=== PATIENT | female | born 1935 | race Caucasian/White ===

== ENCOUNTER 2017-09-27 17:31 | Inpatient (IN) | payer MEDICARE, MEDICAID ==
[~2017-09-27] VITALS: Ht 175.3 cm; Wt 76.0 kg
[~2017-09-27 17:31] MED LIST: ALPR0.5T99 PO; BENZ1CAP34 PO; CELE200 PO; CLOP75 PO; COZA100T PO; DILT120C9 PO; GLUCTAB PO; LASI20TA PO; LORTA5 PO; LOVA1TAB47 PO; OMEP20TA PO; TYLE3 PO; VIT E; VIT250TA PO
[2017-09-27 17:42] VITALS: BP 186/84; PULSE 79; RESP 17; TEMP 98.5; O2SAT 98
[2017-09-27] MEDS ORDERED: ONDANSETRON HCL 4 MG/2 ML VIAL IV PUSH ONE (18:00)
[2017-09-27] MEDS ORDERED: MORPHINE SULFATE 2 MG/ML SYRINGE IV PUSH ONE (18:00)
[2017-09-27 18:28] LABS: BASOPHIL % 0.4 % (0.0-2.0); EOSINOPHIL # 0.2 TH/MM3 (0-0.4); EOSINOPHIL % 2.2 % (0.0-4.0); HEMATOCRIT 32.9 % (35.0-46.0); LYMPH % 23.5 % (9.0-44.0); LYMPHOCYTE # 2.1 TH/MM3 (1.0-4.8); MEAN CELL VOLUME 91.1 FL (80.0-100.0); MEAN CORPUSCULAR HEMOGLOBIN 30.5 PG (27.0-34.0); MEAN CORPUSCULAR HGB CONC 33.4 % (32.0-36.0); MEAN PLATELET VOLUME 6.9 FL (7.0-11.0); MONO % 6.6 % (0.0-8.0); MONOCYTE # 0.6 TH/MM3 (0-0.9); NEUT % 67.3 % (16.0-70.0); PLATELET COUNT 402 TH/MM3 (150-450); RED BLOOD COUNT 3.62 MIL/MM3 (4.00-5.30); RED CELL DISTRIBUTION WIDTH 14.2 % (11.6-17.2); WHITE BLOOD COUNT 8.9 TH/MM3 (4.0-11.0)
[2017-09-27 18:34] LABS: INTERNATIONAL NORMALIZED RATIO 0.9 RATIO; PROTHROMBIN TIME - PATIENT 9.5 SEC (9.8-11.6)
--- NOTE | 2017-09-27 18:39 | RADRPT ---
EXAM DATE/TIME: 09/27/2017 18:20 [facility] COMPARISON: No previous studies available for comparison. INDICATIONS : Chest discomfort; fall today. MEDICAL HISTORY : Hypertension. Diabetes. SURGICAL HISTORY : None. ENCOUNTER: Initial ACUITY: 1 day PAIN SCORE: 0/10 LOCATION: Bilateral chest FINDINGS: A single view of the chest demonstrates mild right perihilar airspace disease. Calcified granuloma le ft lung. Tortuous aorta. No effusion. No pneumothorax. CONCLUSION: 1. Mild right-sided perihilar airspace disease. No effusion or pneumothorax. Kishor Shields MD on September 27, 2017 at 18:34 Board Certified Radiologist. This report was verified electronically.
[2017-09-27 18:41] LABS: BICARBONATE 25.2 MEQ/L (21.0-32.0); CALCIUM 8.8 MG/DL (8.5-10.1); CREATININE 0.91 MG/DL (0.50-1.00); MAGNESIUM 1.7 MG/DL (1.5-2.5)
--- NOTE | 2017-09-27 18:41 | RADRPT ---
EXAM DATE/TIME: 09/27/2017 18:18 [facility] COMPARISON: No previous studies available for comparison. INDICATIONS : Right hip pain; fall today. MEDICAL HISTORY : None. SURGICAL HISTORY : None. ENCOUNTER: Initial ACUITY: 1 day PAIN SCORE: 10/10 LOCATION: Right hip. FINDINGS: Examination of the right hip was performed with AP Pelvis. There is a slightly comminuted intertrocha nteric fracture proximal right femur. No dislocation. No other fractures are noted. CONCLUSION: 1. Slightly comminuted intertrochanteric fracture proximal right femur with mild displacement. Kishor Shields MD on September 27, 2017 at 18:38 Board Certified Radiologist. This report was verified electronically.
[2017-09-27] MEDS ORDERED: SODIUM CHLORID 0.9% 500 ML INJ 500 ML IV ONE (19:00)
[2017-09-27] MEDS ORDERED: LOSA100T PO (19:01)
[2017-09-27] MEDS ORDERED: METF500T PO (19:01)
[2017-09-27] MEDS ORDERED: CART120C PO (19:01)
[2017-09-27] MEDS ORDERED: PLAV75TA29 PO (19:01)
[2017-09-27] MEDS ORDERED: TYLETAB34 PO (19:01)
[2017-09-27] MEDS ORDERED: IPRA0.02 NEB (19:01)
[2017-09-27] MEDS ORDERED: OMEP40CA2 PO (19:01)
[2017-09-27] MEDS ORDERED: FURO1TAB62 PO (19:01)
[2017-09-27] MEDS ORDERED: LOVA20TA PO (19:01)
--- NOTE | 2017-09-27 19:30 | RADRPT ---
EXAM DATE/TIME: 09/27/2017 19:01 [facility] COMPARISON: No previous studies available for comparison. INDICATIONS : Right leg pain; fall today. MEDICAL HISTORY : None. SURGICAL HISTORY : None. ENCOUNTER: Initial ACUITY: 1 day PAIN SCORE: 3/10 LOCATION: Right knee. FINDINGS: Two view examination of the right knee demonstrates mild osteoarthritis. Small joint effusion. No acu te fracture or dislocation. CONCLUSION: 1. Mild osteoarthritis of the right knee. Small joint effusion. Kishor Shields MD on September 27, 2017 at 19:27 Board Certified Radiologist. This report was verified electronically.
--- NOTE | 2017-09-27 19:33 | PD ---
HPI Chief Complaint: Fall Time Seen by Provider: 17:43 Travel History International Travel<30 days: No Contact w/Intl Traveler<30days: No Traveled to known affect area: No History of Present Illness HPI 81-year-old female that presents to the ED for evaluation of fall injury to the right hip. Patient came to by was for evaluation of this. Per patient she lost her balance and landed on her right hip. She has not been able to get up to call ambulance for this. Patient has a lot of pain with any movement of the right hip. She denies any prior injuries. Denies hitting her head or losing consciousness. No pain on her back or neck. No pain anywhere else. Per patient pain is 10 out of 10 when she moves it. Otherwise she has 2 out of 10 pain. Denies any numbness, tendon, weakness. No other medical issues. PFSH Past Medical History Arthritis: Yes Cancer: No Cardiovascular Problems: No Cerebrovascular Accident: Yes Diabetes: Yes Patient Takes Glucophage: No Diminished Hearing: No GERD: Yes Hepatitis: No Hiatal Hernia: No Hypertension: Yes Medical other: No Respiratory: No Thyroid Disease: No Past Surgical History Abdominal Surgery: Yes (APPENDECTOMY, CHOLECYSTECTOMY) Appendectomy: Yes Cholecystectomy: Yes Oral Surgery: Yes (VOCAL CORDS CYST REMOVAL ) Pacemaker: No Other Surgery: Yes Social History Alcohol Use: Yes (6 beers serjio;y) Tobacco Use: No Substance Use: Yes (MARIJUANA) Allergies-Medications (Allergen,Severity, Reaction): Coded Allergies: azithromycin (Unverified Allergy, Severe, Anaphylaxis, 02/06/17) Reported Meds & Prescriptions Reported Meds & Active Scripts Active Reported Losartan (Losartan Potassium) 100 Mg Tab 100 Mg PO DAILY Plavix (Clopidogrel Bisulfate) 75 Mg Tab 75 Mg PO DAILY Omeprazole 40 Mg Cap 40 Mg PO DAILY Ipratropium Neb (Ipratropium [place]) 0.5 Mg/2.5 Ml Amp 0.5 Mg NEB Q6HR NEB Tylenol-Codeine #3 (Acetaminophen-Codeine) 300-30 mg Tab 1 Tab PO Q6H PRN Cartia Xt (Diltiazem ER 24 HR) 120 Mg Caper 240 Mg PO BID Lovastatin 20 Mg Tab 20 Mg PO DAILY Metformin (Metformin HCl) 500 Mg Tab 1,000 Mg PO BID Lasix (Furosemide) 20 Mg Tab 20 Mg PO DAILY Review of Systems Except as stated in HPI: all other systems reviewed are Neg Physical Exam Narrative GENERAL: SKIN: Warm and dry. HEAD: Atraumatic. Normocephalic. EYES: Pupils equal and round. No scleral icterus. No injection or drainage. ENT: No nasal bleeding or discharge. Mucous membranes pink and moist. Tongue is midline. No uvula deviation. NECK: Trachea midline. No JVD. CARDIOVASCULAR: Regular rate and rhythm. RESPIRATORY: No accessory muscle use. Clear to auscultation. Breath sounds equal bilaterally. GASTROINTESTINAL: Abdomen soft, non-tender, nondistended. Hepatic and splenic margins not palpable. MUSCULOSKELETAL: Extremities without clubbing, cyanosis, or edema. No obvious deformities. Full range of motion of the upper and lower extremities with exception of the right hip. Patient has no pain with any movement of the right hip. 2+ pulses bilaterally. Sensation intact bilaterally. No lumbar, thoracic and cervical spine tenderness to palpation. NEUROLOGICAL: Awake and alert. No obvious cranial nerve deficits. Motor grossly within normal limits. Five out of 5 muscle strength in the arms and legs. Normal speech. PSYCHIATRIC: Appropriate mood and affect; insight and judgment normal. Data Data Last Documented VS Vital Signs Date Time Temp Pulse Resp B/P (MAP) Pulse Ox O2 Delivery O2 Flow Rate FiO2 09/27/17 17:42 98.5 79 17 186/84 (118) 98 Orders Orders Electrocardiogram (09/27/17 17:57) Complete Blood Count With Diff (09/27/17 17:57) Basic Metabolic Panel (Bmp) (09/27/17 17:57) Prothrombin Time / Inr (Pt) (09/27/17 17:57) Act Partial Throm Time (Ptt) (09/27/17 17:57) Urinalysis - C+S If Indicated (09/27/17 17:57) Magnesium (Mg) (09/27/17 17:57) Chest, Single Ap (09/27/17 17:57) Iv Access Insert/Monitor (09/27/17 17:57) Ecg Monitoring (09/27/17 17:57) Oximetry (09/27/17 17:57) Hip, Uni(Ap&Lat) W Ap Pelvis (09/27/17 ) Morphine Inj (Morphine Inj) (09/27/17 18:00) Ondansetron Inj (Zofran Inj) (09/27/17 18:00) Sodium Chlorid 0.9% 500 Ml Inj (Ns 500 M (09/27/17 19:00) Knee, Ltd (1 Or 2vws) (09/27/17 ) Labs Laboratory Tests Test 09/27/17 17:05 White Blood Count 8.9 TH/MM3 Red Blood Count 3.62 MIL/MM3 Hemoglobin 11.0 GM/DL Hematocrit 32.9 % Mean Corpuscular Volume 91.1 FL Mean Corpuscular Hemoglobin 30.5 PG Mean Corpuscular Hemoglobin Concent 33.4 % Red Cell Distribution Width 14.2 % Platelet Count 402 TH/MM3 Mean Platelet Volume 6.9 FL Neutrophils (%) (Auto) 67.3 % Lymphocytes (%) (Auto) 23.5 % Monocytes (%) (Auto) 6.6 % Eosinophils (%) (Auto) 2.2 % Basophils (%) (Auto) 0.4 % Neutrophils # (Auto) 6.0 TH/MM3 Lymphocytes # (Auto) 2.1 TH/MM3 Monocytes # (Auto) 0.6 TH/MM3 Eosinophils # (Auto) 0.2 TH/MM3 Basophils # (Auto) 0.0 TH/MM3 CBC Comment DIFF FINAL Differential Comment Prothrombin Time 9.5 SEC Prothromb Time International Ratio 0.9 RATIO Activated Partial Thromboplast Time 25.1 SEC Blood Urea Nitrogen 17 MG/DL Creatinine 0.91 MG/DL Random Glucose 113 MG/DL Calcium Level 8.8 MG/DL Magnesium Level 1.7 MG/DL Sodium Level 128 MEQ/L Potassium Level 3.9 MEQ/L Chloride Level 91 MEQ/L Carbon Dioxide Level 25.2 MEQ/L Anion Gap 12 MEQ/L Estimat Glomerular Filtration Rate 59 ML/MIN MDM Medical Decision Making Medical Screen Exam Complete: Yes Emergency Medical Condition: Yes Medical Record Reviewed: Yes Interpretation(s) Last Impressions Chest X-Ray 09/27/17 1757 Signed Impressions: Service Date/Time: September 18:20 - CONCLUSION: 1. Mild right-sided perihilar airspace disease. No effusion or pneumothorax. Kishor Shields MD Hip and Pelvis X-Ray 09/27/17 0000 Signed Impressions: Service Date/Time: September 18:18 - CONCLUSION: 1. Slightly comminuted intertrochanteric fracture proximal right femur with mild displacement. Kishor Shields MD CBC & BMP Diagram 09/27/17 17:05 Calcium Level 8.8, Magnesium Level 1.7 Differential Diagnosis Fracture versus contusion versus bruise Narrative Course 81-year-old female presents to the ED for evaluation of right hip injury. Patient was properly examined and was found to have signs and symptoms concerning for fracture. X-ray was positive for fracture. Patient was told of this and recommendation is for admission. Spoke with Dr. Velasquez who states NPO after midnight and admit to medicine. Dr Louis agrees to admission. Diagnosis Primary Impression: Hip fracture, right Qualified Codes: S72.001A - Fracture of unspecified part of neck of right femur, initial encounter for closed fracture Admitting Information Admitting Physician Requests: Admit Brandt Sarkar Sep 27, 2017 19:33
[2017-09-27] MEDS ORDERED: DEXTROSE 50% IN WATER 50 ML VIAL(D50) IV PUSH PRN (19:45)
[2017-09-27] MEDS ORDERED: NALOXONE HCL 0.4 MG/ML AMP IV PUSH PRN (19:45)
[2017-09-27] MEDS ORDERED: BISACODYL 10 MG SUPP RECTAL PRN (19:45)
[2017-09-27] MEDS ORDERED: ACETAMINOPHEN 325 MG TAB PO PRN (19:45)
[2017-09-27] MEDS ORDERED: SENNOSIDES 8.6 MG TAB PO PRN (19:45)
[2017-09-27] MEDS ORDERED: SODIUM CHLORIDE 0.9% FLUSH 10 ML FLUSH IV FLUSH PRN (19:45)
[2017-09-27] MEDS ORDERED: GLUCAGON 1 MG/ML VIAL OTHER PRN (19:45)
[2017-09-27] MEDS ORDERED: ONDANSETRON HCL 4 MG/2 ML VIAL IVP PRN (19:45)
[2017-09-27] MEDS ORDERED: RESP: ALBUTEROL 2.5 MG/IPRATROPIUM 0.5 MG NEB (PRN) NEB (19:45)
[2017-09-27] MEDS ORDERED: MAGNESIUM HYDROXIDE SUSP 30 ML CUP PO PRN (19:45)
[2017-09-27] MEDS: INSULIN ASPART SUPPLEMENTAL SCALE SQ SCH (21:00)
[2017-09-27] MEDS: DILTIAZEM-CD 120 MG CAP ER PO SCH (21:21)
[2017-09-27] MEDS: MORPHINE SULFATE 2 MG/ML SYRINGE IV PUSH PRN (21:21)
[2017-09-27] MEDS: SODIUM CHLORIDE 0.9% FLUSH 10 ML FLUSH IV FLUSH SCH (21:21)
[2017-09-27 21:25] VITALS: BP 176/71; PULSE 88; RESP 18; TEMP 97.9; O2SAT 96
[2017-09-27] MEDS ORDERED: INSULIN HUMAN REGULAR 1,000 UNITS/10 ML VIAL SQ PRN (21:30)
[2017-09-27] MEDS ORDERED: METOPROLOL TARTRATE 25 MG TAB PO PRN (21:30)
[2017-09-27] MEDS ORDERED: LACTATED RINGER'S 1000 ML IV PRN (21:30)
[2017-09-27] MEDS ORDERED: POVIDONE IODINE 5% (ANTISEPSIS KIT) 4 APPLICATIONS EACH NARE PRN (21:30)
[2017-09-27] MEDS ORDERED: SODIUM CHLORID 0.9% 500 ML IV PRN (21:30)
[2017-09-27] MEDS ORDERED: CHLORHEXIDINE GLUCONATE 2 % 1 PACK (2 CLOTHS) TOPICAL PRN (21:30)
[2017-09-27 23:40] VITALS: BP 173/73; PULSE 89; RESP 18; TEMP 98.3; O2SAT 93
[2017-09-28] MEDS: MORPHINE SULFATE 2 MG/ML SYRINGE IV PUSH PRN (01:05)
[2017-09-28 02:33] LABS: AUTOMATED NEUTROPHIL # 11.7 TH/MM3 (1.8-7.7); BASOPHIL # 0.1 TH/MM3 (0-0.2); BASOPHIL % 0.5 % (0.0-2.0); EOSINOPHIL % 0.1 % (0.0-4.0); HEMATOCRIT 29.9 % (35.0-46.0); HEMOGLOBIN 9.9 GM/DL (11.6-15.3); LYMPH % 9.5 % (9.0-44.0); LYMPHOCYTE # 1.3 TH/MM3 (1.0-4.8); MEAN CELL VOLUME 90.1 FL (80.0-100.0); MEAN CORPUSCULAR HGB CONC 33.3 % (32.0-36.0); MEAN PLATELET VOLUME 7.2 FL (7.0-11.0); MONO % 4.1 % (0.0-8.0); MONOCYTE # 0.6 TH/MM3 (0-0.9); NEUT % 85.8 % (16.0-70.0); PLATELET COUNT 379 TH/MM3 (150-450); RED BLOOD COUNT 3.31 MIL/MM3 (4.00-5.30); RED CELL DISTRIBUTION WIDTH 14.2 % (11.6-17.2); WHITE BLOOD COUNT 13.6 TH/MM3 (4.0-11.0)
[2017-09-28 03:02] LABS: BICARBONATE 25.8 MEQ/L (21.0-32.0); CALCIUM 8.3 MG/DL (8.5-10.1); CREATININE 0.74 MG/DL (0.50-1.00)
[2017-09-28] MEDS ORDERED: HYDROmorphone HCL PF 2 MG/ML VIAL IV PUSH PRN (03:30)
[2017-09-28 04:05] VITALS: BP 156/65; PULSE 88; RESP 18; TEMP 98.2; O2SAT 92
[2017-09-28] MEDS ORDERED: FLUMAZENIL 0.5 MG/5 ML VIAL IV PUSH PRN (04:15)
[2017-09-28] MEDS ORDERED: LORazepam 2 MG TAB PO PRN (04:15)
[2017-09-28] MEDS ORDERED: LORazepam 1 MG TAB PO PRN (04:15)
[2017-09-28] MEDS ORDERED: LORazepam 2 MG/ML VIAL IV PUSH PRN ×4 (04:15)
--- NOTE | 2017-09-28 04:17 | HHI.HP ---
HPI Service [facility] Primary Care Physician Juan Dobbins MD Admission Diagnosis right hip fracture Diagnoses: Travel History International Travel<30 Days: No Contact w/Intl Traveler <30 Da: No Traveled to Known Affected Are: No History of Present Illness 81-year-old female with a past medical history significant for COPD, diabetes mellitus, hypertension, hyperlipidemia, macular degeneration and history of TIA on Plavix presents to the emergency department for evaluation of right hip pain. The patient reports that she was walking outside when she lost her balance and fell onto her right side specifically onto her hip. She denies any head trauma or loss of consciousness. Reports 10/10 pain in the right hip. Review of Systems Except as stated in HPI: all other systems reviewed are Neg Denies fever or chills Denies blurry vision, otorrhea, rhinorrhea Denies sore throat and cough No chest pain, palpitations No shortness of breath or wheezing No abdominal pain Denies constipation/diarrhea/nausea/vomiting Denies muscle pain Denies focal weakness No rashes Past Family Social History Past Medical History Diabetes Hypertension Hyperlipidemia History of TIA COPD Macular degeneration Past Surgical History Cholecystectomy Appendectomy Reported Medications Reported Meds & Active Scripts Active Reported Losartan (Losartan Potassium) 100 Mg Tab 100 Mg PO DAILY Plavix (Clopidogrel Bisulfate) 75 Mg Tab 75 Mg PO DAILY Omeprazole 40 Mg Cap 40 Mg PO DAILY Ipratropium Neb (Ipratropium [place]) 0.5 Mg/2.5 Ml Amp 0.5 Mg NEB Q6HR NEB Tylenol-Codeine #3 (Acetaminophen-Codeine) 300-30 mg Tab 1 Tab PO Q6H PRN Cartia Xt (Diltiazem ER 24 HR) 120 Mg Caper 240 Mg PO BID Lovastatin 20 Mg Tab 20 Mg PO DAILY Metformin (Metformin HCl) 500 Mg Tab 1,000 Mg PO BID Lasix (Furosemide) 20 Mg Tab 20 Mg PO DAILY Allergies: Coded Allergies: azithromycin (Unverified Allergy, Severe, Anaphylaxis, 02/06/17) Family History Mother with diabetes mellitus Physical Exam Vital Signs Vital Signs Date Time Temp Pulse Resp B/P (MAP) Pulse Ox O2 Delivery O2 Flow Rate FiO2 4/5/18 23:40 98.3 89 18 173/73 (106) 93 09/27/17 21:25 97.9 88 18 176/71 (106) 96 09/27/17 17:42 98.5 79 17 186/84 (118) 98 Physical Exam GENERAL: female lying in bed SKIN: No rashes, ecchymoses or lesions. Cool and dry. HEAD: Atraumatic. Normocephalic. No temporal or scalp tenderness. EYES: Pupils equal round and reactive. Extraocular motions intact. No scleral icterus. No injection or drainage. ENT: Nose without bleeding, purulent drainage or septal hematoma. Throat without erythema, tonsillar hypertrophy or exudate. Uvula midline. Airway patent. NECK: Trachea midline. No JVD or lymphadenopathy. Supple, nontender, no meningeal signs. CARDIOVASCULAR: Regular rate and rhythm without murmurs, gallops, or rubs. RESPIRATORY: Clear to auscultation. Breath sounds equal bilaterally. No wheezes , rales, or rhonchi. GASTROINTESTINAL: Abdomen soft, non-tender, nondistended. No hepato-splenomegaly , or palpable masses. No guarding. MUSCULOSKELETAL: Extremities without clubbing, cyanosis, or edema. Right leg externally rotated, neurovascularly intact. NEUROLOGICAL: Awake and alert. Cranial nerves II through XII intact. Motor and sensory grossly within normal limits. Normal speech. Laboratory Laboratory Tests Test 09/27/17 17:05 09/28/17 01:40 White Blood Count 8.9 13.6 Red Blood Count 3.62 3.31 Hemoglobin 11.0 9.9 Hematocrit 32.9 29.9 Mean Corpuscular Volume 91.1 90.1 Mean Corpuscular Hemoglobin 30.5 30.0 Mean Corpuscular Hemoglobin Concent 33.4 33.3 Red Cell Distribution Width 14.2 14.2 Platelet Count 402 379 Mean Platelet Volume 6.9 7.2 Neutrophils (%) (Auto) 67.3 85.8 Lymphocytes (%) (Auto) 23.5 9.5 Monocytes (%) (Auto) 6.6 4.1 Eosinophils (%) (Auto) 2.2 0.1 Basophils (%) (Auto) 0.4 0.5 Neutrophils # (Auto) 6.0 11.7 Lymphocytes # (Auto) 2.1 1.3 Monocytes # (Auto) 0.6 0.6 Eosinophils # (Auto) 0.2 0.0 Basophils # (Auto) 0.0 0.1 CBC Comment DIFF FINAL DIFF FINAL Differential Comment Prothrombin Time 9.5 Prothromb Time International Ratio 0.9 Activated Partial Thromboplast Time 25.1 Blood Urea Nitrogen 17 13 Creatinine 0.91 0.74 Random Glucose 113 141 Calcium Level 8.8 8.3 Magnesium Level 1.7 Sodium Level 128 128 Potassium Level 3.9 4.2 Chloride Level 91 92 Carbon Dioxide Level 25.2 25.8 Anion Gap 12 10 Estimat Glomerular Filtration Rate 59 75 Result Diagram: 09/28/1713909/28/17139 Caprini VTE Risk Assessment Caprini VTE Risk Assessment: Mod/High Risk (score >= 2) Caprini Risk Assessment Model Point Value = 1 Point Value = 2 Point Value = 3 Point Value = 5 Age 41-60 Minor surgery BMI > 25 kg/m2 Swollen legs Varicose veins or History of unexplained or recurrent spontaneous Oral contraceptives or hormone replacement Sepsis (< 1 month) Serious lung disease, including pneumonia (< 1 month) Abnormal pulmonary function Acute myocardial infarction Congestive heart failure (< 1 month) History of inflammatory bowel disease Medical patient at bed rest Age 61-74 Arthroscopic surgery Major open surgery (> 45 min) Laparoscopic surgery (> 45 min) Malignancy Confined to bed (> 72 hours) Immobilizing plaster cast Central venous access Age >= 75 History of VTE Family history of VTE Factor V Leiden Prothrombin [id number] Lupus anticoagulant Anticardiolipin antibodies Elevated serum homocysteine Heparin-induced thrombocytopenia Other congenital or acquired thrombophilia Stroke (< 1 month) Elective arthroplasty Hip, pelvis, or leg fracture Acute spinal cord injury (< 1 month) Prophylaxis Regimen Total Risk Factor Score Risk Level Prophylaxis Regimen 0-1 Low Early ambulation 2 Moderate Order ONE of the following: *Sequential Compression Device (SCD) *Heparin 5000 units SQ BID 3-4 Higher Order ONE of the following medications: *Heparin 5000 units SQ TID *Enoxaparin/Lovenox 40 mg SQ daily (WT < 150 kg, CrCl > 30 mL/min) *Enoxaparin/Lovenox 30 mg SQ daily (WT < 150 kg, CrCl > 10-29 mL/min) *Enoxaparin/Lovenox 30 mg SQ BID (WT < 150 kg, CrCl > 30 mL/min) AND/OR *Sequential Compression Device (SCD) 5 or more Highest Order ONE of the following medications: *Heparin 5000 units SQ TID (Preferred with Epidurals) *Enoxaparin/Lovenox 40 mg SQ daily (WT < 150 kg, CrCl > 30 mL/min) *Enoxaparin/Lovenox 30 mg SQ daily (WT < 150 kg, CrCl > 10-29 mL/min) *Enoxaparin/Lovenox 30 mg SQ BID (WT < 150 kg, CrCl > 30 mL/min) AND *Sequential Compression Device (SCD) Assessment and Plan Assessment and Plan Assessment/plan: 1. Right hip fracture Hip x-ray significant for a slightly comminuted intertrochanteric fracture of the proximal right femur with mild displacement Orthopedic surgery consulted, appreciate assistance Nothing by mouth Dilaudid for pain 2. Diabetes mellitus Holding home metformin Sliding scale insulin Monitor blood glucose 3. Hypertension/hyperlipidemia Continue home medications 4. History of TIA Home Plavix on hold pending surgery 5. COPD DuoNeb as Supplemental oxygen as needed FEN NPO Electrolytes: monitor and replete prn Holding pharmacologic intervention in anticipation of operative intervention Physician Certification 2 Midnight Certification Type: Admission for Inpatient Services Order for Inpatient Services The services are ordered in accordance with Medicare regulations or non- Medicare payer requirements, as applicable. In the case of services not specified as inpatient-only, they are appropriately provided as inpatient services in accordance with the 2-midnight benchmark. Estimated LOS (days): 2 2 days is the estimated time the patient will need to remain in the hospital, assuming treatment plan goals are met and no additional complications. Post-Hospital Plan: Not yet determined Rxoy Louis MD Sep 28, 2017 04:17
[2017-09-28 05:33] LABS: BILIRUBIN, URINE NEG (NEG); BLOOD, URINE NEG (NEG); GLUCOSE,URINE NEG (NEG); KETONE, URINE NEG (NEG); MUCUS URINE FEW /lpf (OCC); NITRITE,URINE NEG (NEG); PH, URINE 5.5 (5.0-8.5); SQUAMOUS EPITHELIAL CELL URINE <1 /hpf (0-5); URINE COLOR LIGHT-YELLOW (YELLW/STRAW); URINE LEUKOCYTE ESTERASE LARGE (NEG)
[2017-09-28] MEDS ORDERED: RESP: IPRATROPIUM 0.5 MG/2.5 ML NEB NEB PRN (06:00)
[2017-09-28 07:40] VITALS: BP 167/74; PULSE 86; RESP 19; TEMP 97.6; O2SAT 94
[2017-09-28] MEDS ORDERED: XARE10TA PO (08:04)
[2017-09-28] MEDS ORDERED: CALCTAB19 PO (08:04)
[2017-09-28] MEDS ORDERED: VITA500012 PO (08:04)
[2017-09-28] MEDS ORDERED: HYDR-3580 PO (08:04)
[2017-09-28] MEDS ORDERED: VITA2000 PO (08:04)
[2017-09-28] MEDS ORDERED: KETAMINE HCL 50 MG/5 ML SYRINGE ONE (08:05)
[2017-09-28] MEDS: LOSARTAN 50 MG TAB PO SCH ×2 (09:00→16:30)
[2017-09-28] MEDS: PANTOPRAZOLE SOD 40 MG DELAYED RELEASE TAB PO SCH (09:00)
[2017-09-28] MEDS: DILTIAZEM-CD 120 MG CAP ER PO SCH ×3 (09:00→20:33)
[2017-09-28] MEDS: PRAVASTATIN SOD 20 MG TAB PO SCH (09:00)
[2017-09-28] MEDS ORDERED: NON-FORMULARY DRUG (Omeprazole 40 MG) PO SCH (09:00)
[2017-09-28] MEDS: FUROSEMIDE 20 MG TAB PO SCH (09:00)
[2017-09-28] MEDS ORDERED: CLOPIDOGREL 75 MG TAB PO SCH (09:00)
[2017-09-28] MEDS: SODIUM CHLORIDE 0.9% FLUSH 10 ML FLUSH IV FLUSH SCH ×2 (09:00→20:34)
[2017-09-28] MEDS ORDERED: BUPIVACAINE/EPINEPHRINE 0.25% 50 ML VIAL ONE (09:23)
[2017-09-28] MEDS ORDERED: VANCOMYCIN HCL 1000 MG VIAL ONE (09:23)
[2017-09-28] MEDS ORDERED: GENTAMICIN SULFATE 80 MG/2 ML VIAL ONE (09:23)
[2017-09-28] MEDS ORDERED: CLINDAMYCIN PHOS 600 MG/4 ML VIAL ONE (09:23)
[2017-09-28] MEDS ORDERED: ceFAZolin INJ 1,000 MG VIAL ONE (09:23)
--- NOTE | 2017-09-28 10:40 | PD.OP ---
cc: Josh Pickard MD Operative Report Date of Surgery: Sep 28, 2017 Preoperative Diagnosis: Displaced right hip intertrochanteric fracture Postoperative Diagnosis: Procedure: Right hip reduction and intramedullary fixation Anesthesia: General Surgeon: Josh Pickard [employer]ident Responder(s): MT Neal PA-C The surgical procedure was assisted by my physician metallurgical laboratory assistant. My P.A. presence was necessary throughout this case for the manipulation and positioning of the surgical extremity. My P.A. was assisting me throughout the duration of this procedure. The skill set of a physician metallurgical laboratory assistant was medically necessary to complete this procedure. During the surgical case the registered nurse surgical services was working at the back table and the physician metallurgical laboratory assistant was directly assisting me. Operation and Findings: Implants used: [13]mm x [380]mm Biomet 130 troch nail Plan of activity: 50% weightbearing 4 weeks, then weight-bear as tolerated Patient was seen and evaluated preoperatively. The patient has significant right hip pain from proximal femur fracture. The risk and benefits of surgery were discussed in depth with the patient to include bleeding, infection, nonunion, malunion, need for hip replacement, painful hardware, as well as medical competitions including blood clots, stroke, heart attack, and . Informed consent was obtained. Operative site was marked. Patient was brought to the operating room and placed on fracture table. IV sedation was administered by anesthesiologist. Timeout procedure was performed. Right hip and leg were prepped with alcohol followed by DuraPrep and draped in the usual sterile fashion. IV antibiotics were given prior to incision. Procedure began with reduction of fracture. Traction was applied. The leg was manipulated to achieve reduction. Excellent reduction was achieved. Fluoroscopy was used to confirm reduction. A three inch incision was made proximal to the trochanter. Subcutaneous tissue was dissected bluntly. Guidepin was placed at the tip of the trochanter and advanced into the femoral canal. Fluoroscopy confirmed appropriate guidepin placement. A opening reamer was placed over the guidepin. A long ball tipped guide pin was now placed down the femoral canal into the center of the distal femur. The nail length was now measured. Fluoroscopy confirmed appropriate guidepin placement. Flexible reamers were now passed over the guidepin to ream the intramedullary canal. The nail was attached to the insertion handle. Nail was now placed over the guidepin into the femoral canal. Fluoroscopy confirmed appropriate nail placement. A second incision was made over the lateral thigh. Cannulas were placed through the insertion handle down to the femur. Guidepin was now placed through the femoral nail into the center of the femoral head. Fluoroscopy confirmed appropriate guidepin placement. Screw length was measured. Cannulated drill was placed over the guidepin. Appropriate length lag screw was now placed. Traction was released and compression was applied. The set screw was now tightened in dynamic mode. Next, using perfect mechoopda technique two distal interlocking screws were placed. Screw holes were predrilled and screw lengths were measured. Final fluoroscopy revealed well aligned fracture with well-placed hardware. Incision was closed with 3-0 Vicryl and nelson. Sterile dressings were applied. Patient was awakened and transferred to recovery room. Josh Pickard MD Sep 28, 2017 10:40
[2017-09-28] MEDS ORDERED: MORPHINE SULFATE 4 MG/ML INJ IV PUSH PRN (10:45)
[2017-09-28] MEDS ORDERED: diphenhydrAMINE HCL 25 MG CAP PO PRN (10:45)
--- NOTE | 2017-09-28 11:08 | MB ---
cc: Josh Chowdhury MD DATE: 09/28/2017 REASON FOR CONSULTATION: Right hip intertrochanteric fracture. CONSULTING PHYSICIAN: Dr. Louis HISTORY OF PRESENT ILLNESS: Grace is an 81-year-old female who had a fall. She describes a mechanical fall. She denies dizziness, syncope or loss of consciousness. She was walking outside when she lost her balance and fell onto her right side. She fell on the ground and avoided landing on concrete. She had immediate right hip pain. She was unable to stand or ambulate. She presented to the emergency room. X-rays revealed a displaced right hip intertrochanteric fracture. She is currently awake, evaluated on the orthopedic floor. Her only complaint is right hip. PAST MEDICAL HISTORY: Illnesses: Diabetes, hypertension, high cholesterol, history of TIAs, COPD. PAST SURGICAL HISTORY: Cholecystectomy, appendectomy. MEDICATIONS: Include losartan, Plavix, omeprazole, ipratropium, Tylenol with Codeine, Cartia, lovastatin, metformin, Lasix. ALLERGIES: AZITHROMYCIN. FAMILY HISTORY: Positive for diabetes in her mother. SOCIAL HISTORY: The patient denies tobacco use. She drinks beer daily. She has occasional marijuana. REVIEW OF SYSTEMS: The patient denies headache, visual changes, neck pain, chest pain, shortness of breath, abdominal pain, nausea, vomiting, recent weight loss, fevers or chills, numbness of any extremities or bowel or bladder incontinence. She complains of right hip pain. Pain is worse with movement. LABORATORY DATA: The patient has a white blood cell count of 13.6, hematocrit of 29.9, and platelet count of 379. INR 0.9. BUN is 13 and creatinine 0.75. X-RAYS: X-rays of the right hip are reviewed. X-rays reveal displaced right hip intertrochanteric fracture. PHYSICAL EXAMINATION: GENERAL: The patient is a pleasant 81-year-old female. She is awake and alert. She is alert and oriented x 3. She has no acute distress. She appears well developed, well nourished. She is mildly overweight. VITAL SIGNS: Temperature 97.6, pulse 86, respirations 19, blood pressure 167/74, O2 saturations 94% on room air. HEAD: The patient is normocephalic. Pupils are equal. NECK: Soft, nontender. The trachea is midline. ABDOMEN: Soft, nontender, nondistended. EXTREMITIES: Examination of bilateral upper extremities reveals no pain with shoulder, elbow or wrist motion. She has intact sensation in all fingers. She has good capillary refill in all fingers. Neon Tube Pumper strength is +5 bilaterally. Examination of the left leg reveals no pain with hip, knee or ankle motion. Skin is intact. Dorsalis pedis pulses palpable. Sensation is intact. Examination of right leg reveals pain with any hip motion. Her right leg is shortened and externally rotated. Skin is intact. She has no pain around her knee, tibia or ankle. Sensation is intact to right foot. IMPRESSION: 1. Chronic obstructive pulmonary disease. 2. Diabetes. 3. History of transient ischemic attacks. 4. Right hip intertrochanteric fracture. 5. 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 PLAN: Treatment options were discussed with the patient. At this point, I would recommend reduction and intramedullary fixation of right femur. Risks of surgery include bleeding, infection, injuries to arteries, nerves or blood vessels, nonunion, malunion, painful hardware, leg length discrepancy as well as medical complications including blood clot, stroke, heart attack and . All questions were answered. I will plan surgery today. I also discussed with her the need for calcium with vitamin D supplementation. She also needs to closely manage her diabetes and blood sugars. A mid-level provider in my office, nurse practitioner or PA, may see this patient on a follow-up basis and continue to implement the objective of this plan including: Starting or adjusting medications, injections of muscle, tendon, bursa or joints, cast application, orthotic or brace application, physical therapy, further radiographic studies including x-ray, MRI, CT, ultrasounds or bone scan, vascular studies, neurologic studies, or other specialist consultations, and proceeding with surgical management as appropriate. MD GERTRUDIS Henriquez/JHONY , 10:47 AM , 11:07 AM
[2017-09-28] MEDS: INSULIN ASPART SUPPLEMENTAL SCALE SQ SCH ×4 (11:14→20:31)
[2017-09-28] MEDS ORDERED: *MEPERIDINE 25 MG INJ VIAL PERIprocedural Use ONLY ONE (11:14)
[2017-09-28] MEDS: RESP: IPRATROPIUM 0.5 MG/2.5 ML NEB NEB SCH ×3 (11:20→21:08)
[2017-09-28] MEDS ORDERED: DO NOT ADM ANY ANTICOAGULANT DRUGS PRN (11:45)
[2017-09-28] MEDS ORDERED: PROPOFOL 200 MG/20 ML AMP IV ONE (12:00)
[2017-09-28] MEDS ORDERED: DEXAMETHASONE SOD PHOS 4 MG/ML VIAL IV ONE (12:00)
[2017-09-28] MEDS ORDERED: ONDANSETRON HCL 4 MG/2 ML VIAL IV ONE (12:00)
[2017-09-28] MEDS ORDERED: ERGOCALCIFEROL (VIT D2) 50,000 UNIT CAP PO ONE (12:00)
[2017-09-28] MEDS ORDERED: LIDOCAINE HCL 1% PF 5 ML SYRINGE OTHER ONE (12:00)
[2017-09-28] MEDS ORDERED: SUCCINYLCHOLINE CHLORIDE 200 MG/10 ML VIAL IV ONE (12:00)
[2017-09-28] MEDS ORDERED: PHENYLEPH/NS 1000 MCG/10 ML SYR IV ONE (12:00)
--- NOTE | 2017-09-28 12:17 | RADRPT ---
EXAM DATE/TIME: 09/28/2017 10:29 [facility] COMPARISON: No previous studies available for comparison. INDICATIONS : Right hip troch nail. MEDICAL HISTORY : None. SURGICAL HISTORY : None. ENCOUNTER: Initial ACUITY: 1 day PAIN SCORE: Non-responsive. LOCATION: Right hip FINDINGS: 4 images are recorded digitally in the operating room during placement of an intramedullary mira and t rochanteric nail. CONCLUSION: Intraoperative images. Jose Angel Kumar MD on September 28, 2017 at 12:15 Board Certified Radiologist. This report was verified electronically.
--- NOTE | 2017-09-28 12:29 | HHI.PR ---
Subjective Remarks came back from surgery. in no acute distress. denies pain. d/w the RN. Objective Vitals Vital Signs Date Time Temp Pulse Resp B/P (MAP) Pulse Ox O2 Delivery O2 Flow Rate FiO2 09/28/17 11:00 97.9 86 23 124/58 (80) 90 Nasal Cannula 2 09/28/17 07:40 97.6 86 19 167/74 (105) 94 09/28/17 04:05 98.2 88 18 156/65 (95) 92 09/27/17 23:40 98.3 89 18 173/73 (106) 93 09/27/17 21:25 97.9 88 18 176/71 (106) 96 09/27/17 17:42 98.5 79 17 186/84 (118) 98 I/O 09/27/17 09/27/17 09/27/17 09/28/17 09/28/17 09/28/17 07:00 15:00 23:00 07:00 15:00 23:00 Intake Total 240 ml 800 ml Output Total 2050 ml 1250 ml Balance -1810 ml -450 ml Intake Oral 240 ml Other 800 ml Output Urine Total 2050 ml 1200 ml Estimated Blood Loss 50 ml # Bowel Movements 0 Result Diagram: 09/28/17 0140 09/28/17 0140 Imaging Last Impressions Chest X-Ray 09/27/17 1757 Signed Impressions: Service Date/Time: September 18:20 - CONCLUSION: 1. Mild right-sided perihilar airspace disease. No effusion or pneumothorax. Kishor Shields MD Knee X-Ray 09/27/17 0000 Signed Impressions: Service Date/Time: September 19:01 - CONCLUSION: 1. Mild osteoarthritis of the right knee. Small joint effusion. Kishor Shields MD Hip and Pelvis X-Ray 09/27/17 0000 Signed Impressions: Service Date/Time: September 18:18 - CONCLUSION: 1. Slightly comminuted intertrochanteric fracture proximal right femur with mild displacement. Kishor Shields MD Objective Remarks GENERAL: This is a well-nourished, well-developed patient, in no apparent distress. CARDIOVASCULAR: Regular rate and regular rhythm without murmurs, gallops, or rubs. RESPIRATORY: Clear to auscultation. Breath sounds equal bilaterally. No wheezes , rales, or rhonchi. GASTROINTESTINAL: Abdomen soft, non-tender, nondistended. Normal, active bowel sounds MUSCULOSKELETAL: Extremities without clubbing, cyanosis, or edema. NEURO: Alert & Oriented x4 to person, place, time, situation. Moves all ext x4 Procedures right hip reduction and intramedullary nailing. Medications and IVs Inpatient Medications Acetaminophen (Tylenol) 650 mg Q4H PRN PO TEMP > 100.4; Start 09/27/17 at 19:45 Acetaminophen/ Hydrocodone Bitart ([place] 7.5-325 Mg) 1 tab Q3H PRN PO pain 3< 10; Start 09/28/17 at 10:45 Albuterol/ Ipratropium (Duoneb Neb) 1 ampule Q4HR NEB PRN NEB SOB/WHEEZING; Start 09/27/17 at 19:45; Stop 09/28/17 at 05:52; Status DC Bisacodyl (Dulcolax Supp) 10 mg DAILY PRN RECTAL SEVERE CONSITIPATION; Start at 19:45 Calcium/Vitamin D (Oscal-D 250-125) 250 mg TID PO ; Start 09/28/17 at 13:00 Chlorhexidine Gluconate (Chlorhexidine 2% Cloth) 3 pack HEAD REFRIGERATING ENGINEER PRN TOPICAL SEE LABEL COMMENTS; Start 09/27/17 at 21:30; Stop 09/30/17 at 21:29 Cholecalciferol (Vitamin D3) 5,000 units DAILY PO ; Start 09/29/17 at 09:00 Clopidogrel Bisulfate (Plavix) 75 mg DAILY PO ; Start 09/28/17 at 09:00; Status Future Hold Dextrose (D50w (Vial) Inj) 50 ml UNSCH PRN IV PUSH HYPOGLYCEMIA-SEE COMMENTS; Start 09/27/17 at 19:45 Diltiazem HCl (Cardizem Cd) 240 mg BID PO Last administered on 09/27/17at 21:21; Start 09/27/17 at 21:00 Diphenhydramine HCl (Benadryl) 25 mg Q6H PRN PO ITCHING; Start 09/28/17 at 10:45 Enoxaparin Sodium (Lovenox Inj) 30 mg Q24H SQ ; Start 09/29/17 at 10:00 Ergocalciferol (Drisdol) 50,000 units ONCE ONCE PO ; Start 09/28/17 at 12:00; Stop 09/28/17 at 12:04; Status DC Flumazenil (Romazicon Inj) 0.2 mg Q1M PRN IV PUSH SEE LABEL COMMENTS; Start 09/28/17 at 04:15 Furosemide (Lasix) 20 mg DAILY PO ; Start 09/28/17 at 09:00 Glucagon (Glucagon Inj) 1 mg UNSCH PRN OTHER HYPOGLYCEMIA-SEE COMMENTS; Start 09/27/17 at 19:45 Hydromorphone HCl (Dilaudid Pf Inj) 1 mg Q4H PRN IV PUSH pain 6-10 Last administered on 09/28/17at 03:46; Start 09/28/17 at 03:30; Stop 09/28/17 at 11:36; Status DC Insulin Aspart (NovoLOG SUPPLEMENTAL SCALE) 1 ACHS SLIDING SCALE SQ ; Start 09/27/17 at 21:00 Insulin Human Regular (NovoLIN R INJ) See Protocol Table ... HEAD REFRIGERATING ENGINEER PRN SQ SEE PROTOCOL TABLE; Start 09/27/17 at 21:30; Stop 09/30/17 at 21:29 Ipratropium [place] (Atrovent Neb) 0.5 mg Q6HR NEB NEB Last administered on 09/28/17at 11:20; Start 09/28/17 at 10:00 Lactated Ringer's 1,000 ml @ 30 mls/hr Q24H PRN IV SEE LABEL COMMENTS Last administered on 09/28/17at 05:54; Start 09/27/17 at 21:30; Stop 09/30/17 at 21:29 Lorazepam (Ativan Inj) 2 mg Q15M PRN IV PUSH CIWA > 20; Start 09/28/17 at 04:15 Lorazepam (Ativan) 2 mg Q2H PRN PO CIWA 11-14; Start 09/28/17 at 04:15 Losartan Potassium (Cozaar) 100 mg DAILY PO ; Start 09/28/17 at 09:00 Magnesium Hydroxide (Milk Of Magnesia Liq) 30 ml Q12H PRN PO Mild constipation ; Start 09/27/17 at 19:45 Metoprolol Tartrate (Lopressor) 25 mg HEAD REFRIGERATING ENGINEER PRN PO SEE LABEL COMMENTS; Start 09/27/17 at 21:30; Stop 09/30/17 at 21:29 Miscellaneous Information ALL NURSING DEPARTME... UNSCH PRN .XX SEE LABEL COMMENTS; Start 09/28/17 at 11:45; Stop 09/29/17 at 11:44 Morphine Sulfate (Morphine Inj) 3 mg Q3H PRN IV PUSH break thru pain; Start 09/28/17 at 10:45 Naloxone HCl (Narcan Inj) 0.4 mg UNSCH PRN IV PUSH SEE LABEL COMMENTS; Start at 19:45 Ondansetron HCl (Zofran Inj) 4 mg Q6H PRN IVP NAUSEA OR VOMITING; Start at 19:45 Pantoprazole Sodium (Protonix) 40 mg DAILY PO ; Start 09/28/17 at 09:00 Povidone Iodine (Betadine 5% Antisepsis Kit) 1 applic HEAD REFRIGERATING ENGINEER PRN EACH NARE SEE LABEL COMMENTS; Start 09/27/17 at 21:30; Stop 09/30/17 at 21:29 Pravastatin Sodium (Pravachol) 20 mg DAILY PO ; Start 09/28/17 at 09:00 Sennosides (Senokot) 17.2 mg Q12H PRN PO Moderate constipation; Start 09/27/17 at 19:45 Sodium Chloride 500 ml @ 30 mls/hr [id number] PRN IV SEE LABEL COMMENTS; Start 09/27/17 at 21:30; Stop 09/30/17 at 21:29 Sodium Chloride (NS Flush) 2 ml BID IV FLUSH Last administered on 09/27/17at 21: 21; Start 09/27/17 at 21:00 A/P Assessment and Plan A/P 1. Right hip fracture Hip x-ray significant for a slightly comminuted intertrochanteric fracture of the proximal right femur with mild displacement Orthopedic surgery consulted, appreciate assistance s/p right hip reduction and intramedullary nailing. continue with pain control and PT. 2. Diabetes mellitus Holding home metformin Sliding scale insulin Monitor blood glucose 3. Hypertension/hyperlipidemia Continue home medications 4. History of TIA Home Plavix on hold pending surgery 5. COPD DuoNeb as Supplemental oxygen as needed 6. hyponatremia- gentle IV fluid- BMP tomorrow. DVT prophylaxis with subq Lovenox- per ortho. Rachel Zavala MD Sep 28, 2017 12:29
[2017-09-28] MEDS: CALCIUM/VITAMIN D 250 MG/125 U TAB PO SCH ×2 (12:55→18:45)
[2017-09-28] MEDS ORDERED: SODIUM CHLORID 0.9% 500 ML INJ 500 ML IV ONE (14:00)
--- NOTE | 2017-09-28 14:18 | PD.ORT.PN ---
Subjective Subjective Remarks POD 0 s/p IMN left hip stable in pacu Objective Vitals Vital Signs Date Time Temp Pulse Resp B/P (MAP) Pulse Ox O2 Delivery O2 Flow Rate FiO2 09/28/17 11:45 98.0 77 13 165/72 (103) 96 Nasal Cannula 2 09/28/17 11:30 75 12 154/67 (96) 96 Nasal Cannula 2 09/28/17 11:15 86 15 177/72 (107) 98 Nasal Cannula 2 09/28/17 11:00 97.9 86 23 124/58 (80) 90 Nasal Cannula 2 09/28/17 07:40 97.6 86 19 167/74 (105) 94 09/28/17 04:05 98.2 88 18 156/65 (95) 92 09/27/17 23:40 98.3 89 18 173/73 (106) 93 09/27/17 21:25 97.9 88 18 176/71 (106) 96 09/27/17 17:42 98.5 79 17 186/84 (118) 98 I/O 09/27/17 09/27/17 09/27/17 09/28/17 09/28/17 09/28/17 07:00 15:00 23:00 07:00 15:00 23:00 Intake Total 240 ml 800 ml Output Total 2050 ml 1450 ml Balance -1810 ml -650 ml Intake Oral 240 ml 0 ml IV Total 0 ml Other 800 ml Output Urine Total 2050 ml 1400 ml Estimated Blood Loss 50 ml # Bowel Movements 0 Result Diagram: 09/28/17 0140 09/28/17 0140 Other Results Laboratory Tests Test 09/27/17 17:05 Prothromb Time International Ratio 0.9 RATIO Prothrombin Time 9.5 SEC (9.8-11.6) Imaging Last 24 hours Impressions Hip X-Ray 09/28/17 0000 Signed Impressions: Service Date/Time: Thursday, September 28, 2017 10:29 - CONCLUSION: Intraoperative images. Jose Angel Kumar MD Chest X-Ray 09/27/17 5887 Signed Impressions: Service Date/Time: September 18:20 - CONCLUSION: 1. Mild right-sided perihilar airspace disease. No effusion or pneumothorax. Kishor Shields MD Objective Remarks RLE: dressings clean and dry. intact. nvi Assessment & Plan Assessment and Plan 1) Right subtroch fx s/p IMN - POD 0 -50%WB -daily drsesing changes POD 2 -CM for rehab placement -dvt prophylaxis -f/u with Luciana or PA in 2 weeks Shlomo Oliveros PA/Claims Account Specialist PA Sep 28, 2017 14:18
[2017-09-28 15:18] VITALS: O2SAT 98
[2017-09-28 15:38] VITALS: BP 183/76; PULSE 87; RESP 19; TEMP 97.3; O2SAT 97
--- NOTE | 2017-09-28 16:10 | EKG ---
Date Performed: 09/28/2017 Time Performed: 01:26:48 PTAGE: 81 years EKG: Sinus rhythm with PAC(s) Borderline ECG PREVIOUS TRACING : 06/28/2011 06.55 No significant change from previous tracing noted. DOCTOR: Josh Trejo Interpretating Date/Time 09/28/2017 16:09:44
[2017-09-28] MEDS: ACETAMINOPHEN/HYDROcodone 325 MG/7.5 MG TAB PO PRN ×2 (18:45→22:46)
[2017-09-28 20:00] VITALS: BP 163/69; PULSE 84; PULSE 90; RESP 18; TEMP 98.5; O2SAT 96
[2017-09-29] VITALS (12 sets, daily range): BP systolic 113–161; BP diastolic 57–75; PULSE 67–85; RESP 17–18; TEMP 97.5–98.2; O2SAT 92–99
[2017-09-29] MEDS: RESP: IPRATROPIUM 0.5 MG/2.5 ML NEB NEB SCH ×4 (04:03→21:22)
[2017-09-29] MEDS: ACETAMINOPHEN/HYDROcodone 325 MG/7.5 MG TAB PO PRN ×7 (04:36→21:11)
--- NOTE | 2017-09-29 07:41 | PD.ORT.PN ---
Subjective Post Op Day #: 1 Subjective Remarks Patient resting comfortably in bed with mile right hip pain. Objective Vitals Vital Signs Date Time Temp Pulse Resp B/P (MAP) Pulse Ox O2 Delivery O2 Flow Rate FiO2 09/29/17 04:20 97.8 74 18 120/75 (90) 99 09/29/17 04:04 98 Nasal Cannula 3.00 09/29/17 04:00 67 09/29/17 00:10 97.7 77 18 135/62 (86) 97 09/29/17 00:00 71 09/28/17 20:00 98.5 90 18 163/69 (100) 96 09/28/17 20:00 84 09/28/17 15:38 97.3 87 19 183/76 (111) 97 09/28/17 15:18 98 Nasal Cannula 4.00 09/28/17 11:45 98.0 77 13 165/72 (103) 96 Nasal Cannula 2 09/28/17 11:30 75 12 154/67 (96) 96 Nasal Cannula 2 09/28/17 11:15 86 15 177/72 (107) 98 Nasal Cannula 2 09/28/17 11:00 97.9 86 23 124/58 (80) 90 Nasal Cannula 2 09/28/17 07:40 97.6 86 19 167/74 (105) 94 I/O 09/28/17 09/28/17 09/28/17 09/29/17 09/29/17 09/29/17 07:00 15:00 23:00 07:00 15:00 23:00 Intake Total 240 ml 800 ml 720 ml Output Total 2050 ml 1450 ml 1000 ml Balance -1810 ml -650 ml -280 ml Intake Oral 240 ml 0 ml 720 ml IV Total 0 ml Other 800 ml Output Urine Total 2050 ml 1400 ml 1000 ml Estimated Blood Loss 50 ml # Bowel Movements 0 0 Result Diagram: 09/28/17 0140 09/28/17 0140 Imaging Last 24 hours Impressions Hip X-Ray 09/28/17 0000 Signed Impressions: Service Date/Time: Thursday, September 28, 2017 10:29 - CONCLUSION: Intraoperative images. Jose Angel Kumar MD Chest X-Ray 09/27/17 3048 Signed Impressions: Service Date/Time: September 18:20 - CONCLUSION: 1. Mild right-sided perihilar airspace disease. No effusion or pneumothorax. Kishor Shields MD Objective Remarks RLE: dressings clean and dry. intact. nvi intact. + SILT. Calf is soft and nontender. Assessment & Plan Ortho Post Op Day #: 1 Problem List: Assessment and Plan 1) Right subtroch fx s/p IMN - POD 1 -50%WB -daily drsesing changes POD 2 -CM for rehab placement vs home with home health -dvt prophylaxis -f/u with Luciana or KAREN in 2 weeks Liban Smith [facility] Sep 29, 2017 07:41
[2017-09-29] MEDS: INSULIN ASPART SUPPLEMENTAL SCALE SQ SCH ×4 (08:00→21:17)
[2017-09-29 08:04] LABS: AUTOMATED NEUTROPHIL # 7.2 TH/MM3 (1.8-7.7); BASOPHIL % 0.1 % (0.0-2.0); HEMATOCRIT 26.1 % (35.0-46.0); HEMOGLOBIN 8.8 GM/DL (11.6-15.3); LYMPH % 9.6 % (9.0-44.0); LYMPHOCYTE # 0.8 TH/MM3 (1.0-4.8); MEAN CELL VOLUME 91.6 FL (80.0-100.0); MEAN CORPUSCULAR HGB CONC 33.8 % (32.0-36.0); MEAN PLATELET VOLUME 7.5 FL (7.0-11.0); MONO % 8.5 % (0.0-8.0); MONOCYTE # 0.8 TH/MM3 (0-0.9); NEUT % 81.8 % (16.0-70.0); PLATELET COUNT 327 TH/MM3 (150-450); RED BLOOD COUNT 2.85 MIL/MM3 (4.00-5.30); RED CELL DISTRIBUTION WIDTH 14.3 % (11.6-17.2); WHITE BLOOD COUNT 8.8 TH/MM3 (4.0-11.0)
[2017-09-29 08:22] LABS: BICARBONATE 28.6 MEQ/L (21.0-32.0); CALCIUM 8.8 MG/DL (8.5-10.1); CREATININE 0.76 MG/DL (0.50-1.00)
[2017-09-29] MEDS: DILTIAZEM-CD 120 MG CAP ER PO SCH ×2 (08:25→21:10)
[2017-09-29] MEDS: PANTOPRAZOLE SOD 40 MG DELAYED RELEASE TAB PO SCH (08:25)
[2017-09-29] MEDS: LOSARTAN 50 MG TAB PO SCH (08:25)
[2017-09-29] MEDS: CHOLECALCIFEROL (VIT D3) 5000 UNIT CAP PO SCH (08:26)
[2017-09-29] MEDS: SODIUM CHLORIDE 0.9% FLUSH 10 ML FLUSH IV FLUSH SCH ×2 (08:26→21:00)
[2017-09-29] MEDS: FUROSEMIDE 20 MG TAB PO SCH (08:26)
[2017-09-29] MEDS: CALCIUM/VITAMIN D 250 MG/125 U TAB PO SCH ×3 (08:26→17:48)
[2017-09-29] MEDS: PRAVASTATIN SOD 20 MG TAB PO SCH (08:26)
--- NOTE | 2017-09-29 10:06 | HHI.PR ---
Subjective Remarks in no acute distress. overall doing fine. pain is controlled. no new complaints. Objective Vitals Vital Signs Date Time Temp Pulse Resp B/P (MAP) Pulse Ox O2 Delivery O2 Flow Rate FiO2 09/29/17 08:46 93 Nasal Cannula 5.00 09/29/17 08:00 97.7 85 17 142/57 (85) 98 09/29/17 04:20 97.8 74 18 120/75 (90) 99 09/29/17 04:04 98 Nasal Cannula 3.00 09/29/17 04:00 67 09/29/17 00:10 97.7 77 18 135/62 (86) 97 09/29/17 00:00 71 09/28/17 20:00 98.5 90 18 163/69 (100) 96 09/28/17 20:00 84 09/28/17 15:38 97.3 87 19 183/76 (111) 97 09/28/17 15:18 98 Nasal Cannula 4.00 09/28/17 11:45 98.0 77 13 165/72 (103) 96 Nasal Cannula 2 09/28/17 11:30 75 12 154/67 (96) 96 Nasal Cannula 2 09/28/17 11:15 86 15 177/72 (107) 98 Nasal Cannula 2 09/28/17 11:00 97.9 86 23 124/58 (80) 90 Nasal Cannula 2 I/O 09/28/17 09/28/17 09/28/17 09/29/17 09/29/17 09/29/17 07:00 15:00 23:00 07:00 15:00 23:00 Intake Total 240 ml 800 ml 720 ml Output Total 2050 ml 1450 ml 1000 ml Balance -1810 ml -650 ml -280 ml Intake Oral 240 ml 0 ml 720 ml IV Total 0 ml Other 800 ml Output Urine Total 2050 ml 1400 ml 1000 ml Estimated Blood Loss 50 ml # Bowel Movements 0 0 Result Diagram: 09/29/17 0553 09/29/17 0553 Imaging Last Impressions Hip X-Ray 09/28/17 0000 Signed Impressions: Service Date/Time: Thursday, September 28, 2017 10:29 - CONCLUSION: Intraoperative images. Jose Angel Kumar MD Chest X-Ray 09/27/17 1757 Signed Impressions: Service Date/Time: September 18:20 - CONCLUSION: 1. Mild right-sided perihilar airspace disease. No effusion or pneumothorax. Kishor Shields MD Knee X-Ray 09/27/17 0000 Signed Impressions: Service Date/Time: September 19:01 - CONCLUSION: 1. Mild osteoarthritis of the right knee. Small joint effusion. Kishor Shields MD Hip and Pelvis X-Ray 09/27/17 0000 Signed Impressions: Service Date/Time: September 18:18 - CONCLUSION: 1. Slightly comminuted intertrochanteric fracture proximal right femur with mild displacement. Kishor Shields MD Objective Remarks GENERAL: This is a well-nourished, well-developed patient, in no apparent distress. CARDIOVASCULAR: Regular rate and regular rhythm without murmurs, gallops, or rubs. RESPIRATORY: Clear to auscultation. Breath sounds equal bilaterally. No wheezes , rales, or rhonchi. GASTROINTESTINAL: Abdomen soft, non-tender, nondistended. Normal, active bowel sounds MUSCULOSKELETAL: Extremities without clubbing, cyanosis, or edema. NEURO: Alert & Oriented x4 to person, place, time, situation. Moves all ext x4 Procedures right hip reduction and intramedullary nailing. Medications and IVs Inpatient Medications Acetaminophen (Tylenol) 650 mg Q4H PRN PO TEMP > 100.4; Start 09/27/17 at 19:45 Acetaminophen/ Hydrocodone Bitart ([place] 7.5-325 Mg) 1 tab Q3H PRN PO pain 3< 10 Last administered on 09/29/17at 09:26; Start 09/28/17 at 10:45 Albuterol/ Ipratropium (Duoneb Neb) 1 ampule Q4HR NEB PRN NEB SOB/WHEEZING; Start 09/27/17 at 19:45; Stop 09/28/17 at 05:52; Status DC Bisacodyl (Dulcolax Supp) 10 mg DAILY PRN RECTAL SEVERE CONSITIPATION; Start at 19:45 Calcium/Vitamin D (Oscal-D 250-125) 250 mg TID PO Last administered on at 08:26; Start 09/28/17 at 13:00 Chlorhexidine Gluconate (Chlorhexidine 2% Cloth) 3 pack GLASS DESIGNER PRN TOPICAL SEE LABEL COMMENTS; Start 09/27/17 at 21:30; Stop 09/30/17 at 21:29 Cholecalciferol (Vitamin D3) 5,000 units DAILY PO Last administered on at 08:26; Start 09/29/17 at 09:00 Clopidogrel Bisulfate (Plavix) 75 mg DAILY PO ; Start 09/28/17 at 09:00; Status Future Hold Dextrose (D50w (Vial) Inj) 50 ml UNSCH PRN IV PUSH HYPOGLYCEMIA-SEE COMMENTS; Start 09/27/17 at 19:45 Diltiazem HCl (Cardizem Cd) 240 mg BID PO Last administered on 09/29/17at 08:25; Start 09/27/17 at 21:00 Diphenhydramine HCl (Benadryl) 25 mg Q6H PRN PO ITCHING; Start 09/28/17 at 10:45 Enoxaparin Sodium (Lovenox Inj) 30 mg Q24H SQ ; Start 09/29/17 at 10:00 Ergocalciferol (Drisdol) 50,000 units ONCE ONCE PO ; Start 09/28/17 at 12:00; Stop 09/28/17 at 12:04; Status DC Flumazenil (Romazicon Inj) 0.2 mg Q1M PRN IV PUSH SEE LABEL COMMENTS; Start 09/28/17 at 04:15 Furosemide (Lasix) 20 mg DAILY PO Last administered on 09/29/17at 08:26; Start at 09:00 Glucagon (Glucagon Inj) 1 mg UNSCH PRN OTHER HYPOGLYCEMIA-SEE COMMENTS; Start 09/27/17 at 19:45 Hydromorphone HCl (Dilaudid Pf Inj) 1 mg Q4H PRN IV PUSH pain 6-10 Last administered on 09/28/17at 03:46; Start 09/28/17 at 03:30; Stop 09/28/17 at 11:36; Status DC Insulin Aspart (NovoLOG SUPPLEMENTAL SCALE) 1 ACHS SLIDING SCALE SQ Last administered on 09/29/17at 08:00; Start 09/27/17 at 21:00 Insulin Human Regular (NovoLIN R INJ) See Protocol Table ... GLASS DESIGNER PRN SQ SEE PROTOCOL TABLE; Start 09/27/17 at 21:30; Stop 09/30/17 at 21:29 Ipratropium [place] (Atrovent Neb) 0.5 mg Q6HR NEB NEB Last administered on 08:44; Start 09/28/17 at 10:00 Lactated Ringer's 1,000 ml @ 30 mls/hr Q24H PRN IV SEE LABEL COMMENTS Last administered on 09/28/17at 05:54; Start 09/27/17 at 21:30; Stop 09/28/17 at 12:31; Status DC Lorazepam (Ativan Inj) 2 mg Q15M PRN IV PUSH CIWA > 20; Start 09/28/17 at 04:15 Lorazepam (Ativan) 2 mg Q2H PRN PO CIWA 11-14; Start 09/28/17 at 04:15 Losartan Potassium (Cozaar) 100 mg DAILY PO Last administered on 09/29/17 08:25 ; Start 09/28/17 at 09:00 Magnesium Hydroxide (Milk Of Magnesia Liq) 30 ml Q12H PRN PO Mild constipation Last administered on 09/29/17 08:26; Start 09/27/17 at 19:45 Metoprolol Tartrate (Lopressor) 25 mg GLASS DESIGNER PRN PO SEE LABEL COMMENTS; Start 09/27/17 at 21:30; Stop 09/30/17 at 21:29 Miscellaneous Information ALL NURSING DEPARTME... UNSCH PRN .XX SEE LABEL COMMENTS; Start 09/28/17 at 11:45; Stop 09/29/17 at 11:44 Morphine Sulfate (Morphine Inj) 3 mg Q3H PRN IV PUSH break thru pain Last administered on 09/28/17at 13:39; Start 09/28/17 at 10:45 Naloxone HCl (Narcan Inj) 0.4 mg UNSCH PRN IV PUSH SEE LABEL COMMENTS; Start at 19:45 Ondansetron HCl (Zofran Inj) 4 mg Q6H PRN IVP NAUSEA OR VOMITING; Start at 19:45 Pantoprazole Sodium (Protonix) 40 mg DAILY PO Last administered on 09/29/17 08: 25; Start 09/28/17 at 09:00 Povidone Iodine (Betadine 5% Antisepsis Kit) 1 applic GLASS DESIGNER PRN EACH NARE SEE LABEL COMMENTS; Start 09/27/17 at 21:30; Stop 09/30/17 at 21:29 Pravastatin Sodium (Pravachol) 20 mg DAILY PO Last administered on 09/29/17at 08: 26; Start 09/28/17 at 09:00 Sennosides (Senokot) 17.2 mg Q12H PRN PO Moderate constipation; Start 09/27/17 at 19:45 Sodium Chloride 500 ml @ 50 mls/hr Q10H ONCE IV ; Start 09/28/17 at 14:00; Stop 09/28/17 at 23:59; Status DC Sodium Chloride (NS Flush) 2 ml BID IV FLUSH Last administered on 09/29/17at 08: 26; Start 09/27/17 at 21:00 A/P Assessment and Plan A/P 1. Right hip fracture Hip x-ray significant for a slightly comminuted intertrochanteric fracture of the proximal right femur with mild displacement Orthopedic surgery consulted, appreciate assistance s/p right hip reduction and intramedullary nailing. continue with pain control and PT. 2. Diabetes mellitus Holding home metformin Sliding scale insulin Monitor blood glucose 3. Hypertension/hyperlipidemia Continue home medications 4. History of TIA resume plavix when ok with ortho. 5. COPD DuoNeb as Supplemental oxygen as needed 6. hyponatremia-improved. DVT prophylaxis with subq Lovenox- per ortho. Discharge Planning dc planning per ortho; rehab vs home with C. Rachel Zavala MD Sep 29, 2017 10:06
[2017-09-29] MEDS ORDERED: PLAV75TA29 PO (10:11)
[2017-09-29] MEDS: ENOXAPARIN SODIUM 30 MG/0.3 ML SYRINGE SQ SCH (10:18)
[2017-09-30] MEDS: ACETAMINOPHEN/HYDROcodone 325 MG/7.5 MG TAB PO PRN ×3 (01:08→07:41)
[2017-09-30] MEDS: RESP: IPRATROPIUM 0.5 MG/2.5 ML NEB NEB SCH ×2 (03:12→10:18)
[2017-09-30 04:15] VITALS: BP 139/63; PULSE 75; RESP 18; TEMP 97.9; O2SAT 97
[2017-09-30] MEDS: PRAVASTATIN SOD 20 MG TAB PO SCH (07:40)
[2017-09-30] MEDS: CALCIUM/VITAMIN D 250 MG/125 U TAB PO SCH ×2 (07:40→12:47)
[2017-09-30] MEDS: FUROSEMIDE 20 MG TAB PO SCH (07:40)
[2017-09-30] MEDS: SODIUM CHLORIDE 0.9% FLUSH 10 ML FLUSH IV FLUSH SCH (07:40)
[2017-09-30] MEDS: CHOLECALCIFEROL (VIT D3) 5000 UNIT CAP PO SCH (07:40)
[2017-09-30] MEDS: DILTIAZEM-CD 120 MG CAP ER PO SCH (07:41)
[2017-09-30] MEDS: LOSARTAN 50 MG TAB PO SCH (07:41)
[2017-09-30] MEDS: PANTOPRAZOLE SOD 40 MG DELAYED RELEASE TAB PO SCH (07:41)
[2017-09-30 08:00] VITALS: BP 140/65; PULSE 78; RESP 17; TEMP 98.2; O2SAT 92
[2017-09-30] MEDS: INSULIN ASPART SUPPLEMENTAL SCALE SQ SCH ×2 (08:08→12:43)
--- NOTE | 2017-09-30 09:25 | HHI.PR ---
Subjective Remarks in no acute distress. pain is moderate. no fever. no BM yet. family at the bedside. Objective Vitals Vital Signs Date Time Temp Pulse Resp B/P (MAP) Pulse Ox O2 Delivery O2 Flow Rate FiO2 09/30/17 08:00 98.2 78 17 140/65 (90) 92 09/30/17 04:58 18 09/30/17 04:15 97.9 75 18 139/63 (88) 97 09/29/17 23:15 97.5 76 18 161/63 (95) 96 09/29/17 21:24 96 Nasal Cannula 2.00 09/29/17 19:31 18 09/29/17 19:30 98.2 75 18 113/68 (83) 96 09/29/17 15:18 97.6 75 17 159/65 (96) 92 09/29/17 12:05 97.7 78 18 156/69 (98) 96 I/O 09/29/17 09/29/17 09/29/17 09/30/17 09/30/17 09/30/17 07:00 15:00 23:00 07:00 15:00 23:00 Intake Total 720 ml 650 ml 360 ml Output Total 1000 ml Balance -280 ml 650 ml 360 ml Intake Oral 720 ml 650 ml 360 ml Output Urine Total 1000 ml # Voids 1 2 # Bowel Movements 0 0 0 Result Diagram: 09/29/17 0553 09/29/17 0553 Imaging Last Impressions Hip X-Ray 09/28/17 0000 Signed Impressions: Service Date/Time: Thursday, September 28, 2017 10:29 - CONCLUSION: Intraoperative images. Jose Angel Kumar MD Chest X-Ray 09/27/17 2347 Signed Impressions: Service Date/Time: September 18:20 - CONCLUSION: 1. Mild right-sided perihilar airspace disease. No effusion or pneumothorax. Kishor Shields MD Knee X-Ray 09/27/17 0000 Signed Impressions: Service Date/Time: September 19:01 - CONCLUSION: 1. Mild osteoarthritis of the right knee. Small joint effusion. Kishor Shields MD Hip and Pelvis X-Ray 09/27/17 0000 Signed Impressions: Service Date/Time: September 18:18 - CONCLUSION: 1. Slightly comminuted intertrochanteric fracture proximal right femur with mild displacement. Kishor Shields MD Objective Remarks GENERAL: This is a well-nourished, well-developed patient, in no apparent distress. CARDIOVASCULAR: Regular rate and regular rhythm without murmurs, gallops, or rubs. RESPIRATORY: Clear to auscultation. Breath sounds equal bilaterally. No wheezes , rales, or rhonchi. GASTROINTESTINAL: Abdomen soft, non-tender, nondistended. Normal, active bowel sounds MUSCULOSKELETAL: Extremities without clubbing, cyanosis, or edema. NEURO: Alert & Oriented x4 to person, place, time, situation. Moves all ext x4 Procedures right hip reduction and intramedullary nailing. Medications and IVs Inpatient Medications Acetaminophen (Tylenol) 650 mg Q4H PRN PO TEMP > 100.4; Start 09/27/17 at 19:45 Acetaminophen/ Hydrocodone Bitart ([place] 7.5-325 Mg) 1 tab Q3H PRN PO pain 3< 10 Last administered on 09/30/17at 07:41; Start 09/28/17 at 10:45 Albuterol/ Ipratropium (Duoneb Neb) 1 ampule Q4HR NEB PRN NEB SOB/WHEEZING; Start 09/27/17 at 19:45; Stop 09/28/17 at 05:52; Status DC Bisacodyl (Dulcolax Supp) 10 mg DAILY PRN RECTAL SEVERE CONSITIPATION; Start at 19:45 Calcium/Vitamin D (Oscal-D 250-125) 250 mg TID PO Last administered on at 07:40; Start 09/28/17 at 13:00 Chlorhexidine Gluconate (Chlorhexidine 2% Cloth) 3 pack PRECIPITATE WASHER PRN TOPICAL SEE LABEL COMMENTS; Start 09/27/17 at 21:30; Stop 09/30/17 at 21:29 Cholecalciferol (Vitamin D3) 5,000 units DAILY PO Last administered on at 07:40; Start 09/29/17 at 09:00 Clopidogrel Bisulfate (Plavix) 75 mg DAILY PO ; Start 09/28/17 at 09:00; Status Future Hold Dextrose (D50w (Vial) Inj) 50 ml UNSCH PRN IV PUSH HYPOGLYCEMIA-SEE COMMENTS; Start 09/27/17 at 19:45 Diltiazem HCl (Cardizem Cd) 240 mg BID PO Last administered on 09/30/17at 07:41; Start 09/27/17 at 21:00 Diphenhydramine HCl (Benadryl) 25 mg Q6H PRN PO ITCHING; Start 09/28/17 at 10:45 Enoxaparin Sodium (Lovenox Inj) 30 mg Q24H SQ Last administered on 09/29/17at 10: 18; Start 09/29/17 at 10:00 Ergocalciferol (Drisdol) 50,000 units ONCE ONCE PO ; Start 09/28/17 at 12:00; Stop 09/28/17 at 12:04; Status DC Flumazenil (Romazicon Inj) 0.2 mg Q1M PRN IV PUSH SEE LABEL COMMENTS; Start 09/28/17 at 04:15 Furosemide (Lasix) 20 mg DAILY PO Last administered on 09/30/17at 07:40; Start at 09:00 Glucagon (Glucagon Inj) 1 mg UNSCH PRN OTHER HYPOGLYCEMIA-SEE COMMENTS; Start 09/27/17 at 19:45 Hydromorphone HCl (Dilaudid Pf Inj) 1 mg Q4H PRN IV PUSH pain 6-10 Last administered on 09/28/17at 03:46; Start 09/28/17 at 03:30; Stop 09/28/17 at 11:36; Status DC Insulin Aspart (NovoLOG SUPPLEMENTAL SCALE) 1 ACHS SLIDING SCALE SQ Last administered on 09/30/17at 08:08; Start 09/27/17 at 21:00 Insulin Human Regular (NovoLIN R INJ) See Protocol Table ... PRECIPITATE WASHER PRN SQ SEE PROTOCOL TABLE; Start 09/27/17 at 21:30; Stop 09/30/17 at 21:29 Ipratropium [place] (Atrovent Neb) 0.5 mg Q6HR NEB NEB Last administered on 09/29/17at 21:22; Start 09/28/17 at 10:00 Lactated Ringer's 1,000 ml @ 30 mls/hr Q24H PRN IV SEE LABEL COMMENTS Last administered on 09/28/17at 05:54; Start 09/27/17 at 21:30; Stop 09/28/17 at 12:31; Status DC Lorazepam (Ativan Inj) 2 mg Q15M PRN IV PUSH CIWA > 20; Start 09/28/17 at 04:15 Lorazepam (Ativan) 2 mg Q2H PRN PO CIWA 11-14; Start 09/28/17 at 04:15 Losartan Potassium (Cozaar) 100 mg DAILY PO Last administered on 09/30/17at 07:41 ; Start 09/28/17 at 09:00 Magnesium Hydroxide (Milk Of Magnautumn Liq) 30 ml Q12H PRN PO Mild constipation Last administered on 09/29/17at 08:26; Start 09/27/17 at 19:45 Metoprolol Tartrate (Lopressor) 25 mg PRECIPITATE WASHER PRN PO SEE LABEL COMMENTS; Start 09/27/17 at 21:30; Stop 09/30/17 at 21:29 Miscellaneous Information ALL NURSING DEPARTME... UNSCH PRN .XX SEE LABEL COMMENTS; Start 09/28/17 at 11:45; Stop 09/29/17 at 11:44; Status DC Morphine Sulfate (Morphine Inj) 3 mg Q3H PRN IV PUSH break thru pain Last administered on 09/28/17at 13:39; Start 09/28/17 at 10:45 Naloxone HCl (Narcan Inj) 0.4 mg UNSCH PRN IV PUSH SEE LABEL COMMENTS; Start at 19:45 Ondansetron HCl (Zofran Inj) 4 mg Q6H PRN IVP NAUSEA OR VOMITING; Start at 19:45 Pantoprazole Sodium (Protonix) 40 mg DAILY PO Last administered on 09/30/17at 07: 41; Start 09/28/17 at 09:00 Povidone Iodine (Betadine 5% Antisepsis Kit) 1 applic PRECIPITATE WASHER PRN EACH NARE SEE LABEL COMMENTS; Start 09/27/17 at 21:30; Stop 09/30/17 at 21:29 Pravastatin Sodium (Pravachol) 20 mg DAILY PO Last administered on 09/30/17at 07: 40; Start 09/28/17 at 09:00 Sennosides (Senokot) 17.2 mg Q12H PRN PO Moderate constipation; Start 09/27/17 at 19:45 Sodium Chloride 500 ml @ 50 mls/hr Q10H ONCE IV ; Start 09/28/17 at 14:00; Stop 09/28/17 at 23:59; Status DC Sodium Chloride (NS Flush) 2 ml BID IV FLUSH Last administered on 09/30/17at 07: 40; Start 09/27/17 at 21:00 A/P Assessment and Plan A/P 1. Right hip fracture Hip x-ray significant for a slightly comminuted intertrochanteric fracture of the proximal right femur with mild displacement Orthopedic surgery consulted, appreciate assistance s/p right hip reduction and intramedullary nailing. continue with pain control and PT. 2. Diabetes mellitus Holding home metformin Sliding scale insulin Monitor blood glucose 3. Hypertension/hyperlipidemia Continue home medications 4. History of TIA resume plavix when ok with ortho. 5. COPD with no exacerbation. DuoNeb as Supplemental oxygen as needed 6. hyponatremia-improved. DVT prophylaxis with subq Lovenox- per ortho. Discharge Planning dc planning per ortho; rehab vs home with [facility]. Rachel Zavala MD Sep 30, 2017 09:25
--- NOTE | 2017-09-30 09:48 | PD.ORT.PN ---
Subjective Subjective Remarks Patient is OOB in chair with continued pain. Patient states her pain medication is not covering her pain well. Patient tells me she is on chronic narcotics. Objective Vitals Vital Signs Date Time Temp Pulse Resp B/P (MAP) Pulse Ox O2 Delivery O2 Flow Rate FiO2 09/30/17 08:00 98.2 78 17 140/65 (90) 92 09/30/17 04:58 18 09/30/17 04:15 97.9 75 18 139/63 (88) 97 09/29/17 23:15 97.5 76 18 161/63 (95) 96 09/29/17 21:24 96 Nasal Cannula 2.00 09/29/17 19:31 18 09/29/17 19:30 98.2 75 18 113/68 (83) 96 09/29/17 15:18 97.6 75 17 159/65 (96) 92 09/29/17 12:05 97.7 78 18 156/69 (98) 96 I/O 09/29/17 09/29/17 09/29/17 09/30/17 09/30/17 09/30/17 07:00 15:00 23:00 07:00 15:00 23:00 Intake Total 720 ml 650 ml 360 ml Output Total 1000 ml Balance -280 ml 650 ml 360 ml Intake Oral 720 ml 650 ml 360 ml Output Urine Total 1000 ml # Voids 1 2 # Bowel Movements 0 0 0 Result Diagram: 09/29/17 0553 09/29/17 0553 Imaging Last 24 hours Impressions Hip X-Ray 09/28/17 0000 Signed Impressions: Service Date/Time: Thursday, September 28, 2017 10:29 - CONCLUSION: Intraoperative images. Jsoe Angel Kumar MD Chest X-Ray 09/27/17 3599 Signed Impressions: Service Date/Time: September 18:20 - CONCLUSION: 1. Mild right-sided perihilar airspace disease. No effusion or pneumothorax. Kishor Shields MD Objective Remarks RLE: dressings clean and dry. intact. nvi intact. + SILT. Calf is soft and nontender. + UTI Assessment & Plan Ortho Post Op Day #: 2 Problem List: Assessment and Plan 1) Right subtroch fx s/p IMN - POD 2 -50%WB -daily drsesing changes POD 2 -CM for rehab placement vs home with home health -dvt prophylaxis -f/u with [facility] or [facility] in 2 weeks - Changing pain medication to [place] 5 mg 1-2 every 4-6 hours PRN. Patient on chronic narcotics prior to her surgery. UTI -Starting Bactrim. Will need medical to give scripts for discharge. Liban Smith Sep 30, 2017 09:48
[2017-09-30] MEDS ORDERED: HYDR-3288 PO (09:54)
[2017-09-30] MEDS ORDERED: BACT800T5 PO (09:55)
[2017-09-30] MEDS ORDERED: ACETAMINOPHEN/HYDROcodone 325 MG/7.5 MG TAB PO PRN (10:00)
[2017-09-30] MEDS ORDERED: SULFAMETHOXAZOLE-TRIMETHOPRIM DS 800-160 MG TAB PO SCH (10:00)
[2017-09-30 10:18] VITALS: O2SAT 93
[2017-09-30] MEDS: ENOXAPARIN SODIUM 30 MG/0.3 ML SYRINGE SQ SCH (10:36)
[2017-09-30 12:40] VITALS: BP 142/64; PULSE 83; RESP 17; TEMP 98.3; O2SAT 96
[2017-10-02] MEDS ORDERED: COMMODE 3-IN-11 MIS (13:32)
[2017-10-02] MEDS ORDERED: WHEE1EAC (13:32)
[2017-10-08] MEDS ORDERED: METF1000 PO (12:38)
[2017-10-08] MEDS ORDERED: PERI PO (12:38)
[2017-10-08] MEDS ORDERED: FERR325T20 PO (12:38)
[2017-10-08] MEDS ORDERED: SENN187 PO (12:38)
[2017-10-08] MEDS ORDERED: DILT240C44 PO (12:38)
[2017-10-08] MEDS ORDERED: OMEP40CA2 PO (12:38)
[2017-10-08] MEDS ORDERED: CALC250 PO (12:38)
[2017-10-08] MEDS ORDERED: MECL1TAB42 PO (12:38)
[2017-10-08] MEDS ORDERED: METO-309 PO (12:38)
[2017-10-08] MEDS ORDERED: PLAV75TA29 PO (12:38)
[2017-10-08] MEDS ORDERED: VITA500012 PO (12:38)
[2017-10-08] MEDS ORDERED: IPRA0.02 NEB (12:38)
[2017-10-08] MEDS ORDERED: LOSA100T PO (12:38)
[2017-10-08] MEDS ORDERED: ACET325T15 PO (12:38)
[2017-10-08] MEDS ORDERED: CHOL5000 PO (12:38)
[2017-10-08] MEDS ORDERED: BISA10R RECTAL (12:38)
[2017-10-08] MEDS ORDERED: THIA100 PO (12:38)
[2017-10-08] MEDS ORDERED: THERTAB15 PO (12:38)
[2017-10-08] MEDS ORDERED: SPIRCAP INH (12:38)
[2017-10-08] MEDS ORDERED: FOLI1TAB6 PO (12:38)
[2017-10-08] MEDS ORDERED: LOVA20TA PO (12:38)
[2017-10-08] MEDS ORDERED: FURO1TAB62 PO (12:38)
[2017-10-08] MEDS ORDERED: HYDR-3800 PO (12:38)
[2017-10-08] MEDS ORDERED: POLY17S PO (12:38)
== END 2017-09-30 15:04 | DRG 481 ==
LOC: NEPE 17:31 → NEDA 19:35 → N06A 20:30
PROVIDERS: ADMIT Internal Medicine; ATTEND Internal Medicine
PROC: 2W6LXZZ Traction of Right Lower Extremity (ICD-10-PCS; 2017-09-28)
PROC: 0QS606Z Reposition Right Upper Femur with Intramedullary Internal Fixation Device, Open Approach (ICD-10-PCS; principal; 2017-09-28 09:34)
DX: S72.141A Displaced intertrochanteric fracture of right femur, initial encounter for closed fracture (principal); E87.1 Hypo-osmolality and hyponatremia; N39.0 Urinary tract infection, site not specified; J44.9 Chronic obstructive pulmonary disease, unspecified; E11.9 Type 2 diabetes mellitus without complications; I10 Essential (primary) hypertension; F12.90 Cannabis use, unspecified, uncomplicated; M19.90 Unspecified osteoarthritis, unspecified site; K21.9 Gastro-esophageal reflux disease without esophagitis; E78.5 Hyperlipidemia, unspecified; E78.00 Pure hypercholesterolemia, unspecified; M81.0 Age-related osteoporosis without current pathological fracture; H35.30 Unspecified macular degeneration; Y93.01 Activity, walking, marching and hiking; W01.0XXA Fall on same level from slipping, tripping and stumbling without subsequent striking against object, initial encounter; Z86.73 Personal history of transient ischemic attack (TIA), and cerebral infarction without residual deficits; Z83.3 Family history of diabetes mellitus; Z79.84 Long term (current) use of oral hypoglycemic drugs; Z79.02 Long term (current) use of antithrombotics/antiplatelets
CPT/HCPCS: 71045; 73502; 73560; 76000; 80048; 81001; 82306; 82948; 83735; 85025; 85610; 85730; 86850; 86900; 86901; 87077; 87086; 87186; 93005; 94640; 94664; 96374; 96375; C1713; J0330; J0690; J1100; J1170; J1580; J1650; J1815; J2175; J2270; J2370; J2405; J3370; J7040; J7120; J7644